=== PATIENT | female | born 1985 ===

== ENCOUNTER 2017-02-12 11:59 | Day surgery (SDC) | payer OTHER ==
[2017-02-12 10:20] VITALS: BMI 27.1
[2017-02-12 13:18] VITALS: O2SAT 100
[2017-02-12] MEDS ORDERED: Doxycycline 100 mg Inj ONE (15:34)
[2017-02-12] MEDS ORDERED: Oxytocin 10 Units/ml Inj ONE (15:36)
[2017-02-12] MEDS ORDERED: Lactated Ringer's 1,000 ML IV ONE (15:45)
[2017-02-12] MEDS ORDERED: Propofol 10 mg/ml Inj (20 ML) ONE (15:51)
[2017-02-12] MEDS ORDERED: HYDROmorphone 0.5 mg/0.5 ml ISec IVP PRN (15:57)
[2017-02-12] MEDS ORDERED: Midazolam 2 MG/2 ML VIAL ONE (16:05)
--- NOTE | 2017-02-12 16:30 | PCM.SURG1 ---
Surgeon's Initial Post Op Note - Surgeon's Notes Surgeon: Jena Abdalla MD Student Affairs Vice President: none Type of Anesthesia: General LMA Pre-Operative Diagnosis: Missed 8 weeks Operative Findings: anteverted uterus, no adnexal masses , cervix 3cm dilated, moderate amounts of products of conception, 7 curved suction currette, good hemostasis Post-Operative Diagnosis: same as above Operation Performed: Suction Dilaiton and currettage Specimen/Specimens Removed: products of conception Estimated Blood Loss: EBL {In ML}: 10 Blood Products Given: N/A Drains Used: No Drains Post-Op Condition: Good Date of Surgery/Procedure: 02/12/17 Time of Surgery/Procedure: 16:00
[2017-02-12 18:08] VITALS: BP 103/64; PULSE 80; RESP 16; TEMP 98
--- NOTE | 2017-02-12 23:54 | OP ---
PROCEDURE DATE: 02/12/2017 SURGEON: Jena Abdalla MD WINDOWS CONSULTANT: None. TYPE OF ANESTHESIA: General LMA. PREOPERATIVE DIAGNOSIS: Missed , 8 weeks. POSTOPERATIVE DIAGNOSIS: Missed , 8 weeks. OPERATIVE FINDINGS: Anteverted uterus 8 weeks, adnexal masses, cervix dilated 3 cm, moderate amounts of products of conception, good hemostasis. No complications. OPERATION PERFORMED: Suction, dilation, and curettage. SPECIMEN REMOVED: Products of conception. BLOOD PRODUCTS: None. COMPLICATIONS: None. DESCRIPTION OF PROCEDURE: The patient was taken to the operating room, where she was given general anesthesia. Once found to be adequate, she was placed on the operating table in the dorsal supine position with legs supported using stirrups. The patient was then prepped and draped in the usual sterile fashion. A time-out confirmed correct patient and correct procedure. The patient was given preoperative prophylactic antibiotics. Following this, bimanual exam was performed with the above-mentioned findings. A red rubber catheter was then inserted into the urethra to drain the bladder. 14 mL of clear yellow urine. Following this, a Alex retractor was placed in the anterior and posterior fornix of the vagina. Single-toothed tenaculum was placed on the anterior lip of the cervix. The cervix was sequentially dilated with a Demar dilator to allow for introduction of the 7-mm curved suction curette, which was advanced to the fundus. The suction curette was then activated and rotated 360 degrees, and Pitocin was then initiated by Anesthesia. Following this, the suction curette was then advanced three times until all products of conception were removed. Following this, a gentle curettage was done 360 degrees until slight gritty texture was noted. Following this, a suction curette was then advanced one final time until all products were removed and there was air bubbles noted within the suction curette. Following this, all instruments were removed. There was good hemostasis noted at the tenaculum puncture site. At the end of the procedure, all needle, sponge, and instrument counts were noted and correct x2. The patient tolerated the procedure well and was transferred to the recovery room in stable condition. Jena Abdalla MD
== END 2017-02-12 18:33 | disposition home or self-care (01) ==
LOC: C.SDS 11:59
PROVIDERS: ATTEND Obstetrics & Gynecology
DX: O02.1 Missed abortion (principal)
CPT/HCPCS: 59820; 82948; J2250; J2590; J2704; J3010; J7120